=== PATIENT | male | born 1975 | race Caucasian/White ===

== ENCOUNTER 2017-04-18 09:56 | Inpatient (IN) | payer BC, OTHER ==
[~2017-04-18] VITALS: Ht 180.3 cm; Wt 120.2 kg
[2017-04-18] MEDS ORDERED: MORPHINE SULFATE 4 MG/ML SYRG ONE (09:59)
[2017-04-18] MEDS ORDERED: HEPARIN 1,000 UNITS/ml 1ML VIAL ONE (10:00)
[2017-04-18] MEDS ORDERED: HEPARIN SODIUM (PORCINE) 5000 UNITS/ML 1ML VIAL ONE (10:01)
[2017-04-18] MEDS ORDERED: LIDOCAINE 2%HCL (LOCAL ANESTH.) INJ 20ML MDV ONE (10:07)
[2017-04-18] MEDS ORDERED: IODIXANOL 320MG/ML 100ML BTL IV ONE (10:07)
[2017-04-18] MEDS ORDERED: SODIUM CHL 0.9% 50 ML ONE ×2 (10:13→10:56)
[2017-04-18] MEDS ORDERED: ANGIOMAX 250 MG VIAL IV ONE ×2 (10:13→10:56)
[2017-04-18] MEDS ORDERED: MIDAZOLAM HCL 1MG/1ML-2 ML VIAL ONE (10:13)
[2017-04-18] MEDS ORDERED: EPTIFIBATIDE INJ (2MG/ML) 10ML VIAL IV ONE (10:14)
[2017-04-18] MEDS ORDERED: fentaNYL CITRATE 100 MCG/2 ML VL ONE (10:14)
[2017-04-18] MEDS ORDERED: MORPHINE SULFATE 4 MG/ML SYRG IV ONE (10:15)
[2017-04-18] MEDS ORDERED: HEPARIN 1,000 UNITS/ml 1ML VIAL IV ONE (10:15)
[2017-04-18 10:21] LABS: Basophils # (auto) 0 uL; Basophils % (auto) 0.4 % (0.0-2.0); Eosinophils # (auto) 0.3 uL; Eosinophils % (auto) 3.3 % (0.0-7.0); Hematocrit 39.2 % (41.0-53.0); Hemoglobin 13.6 g/dL (13.5-17.5); Lymphocytes # (auto) 3.3 uL; Lymphocytes % (auto) 40.3 % (10.0-50.0); Mean Corpuscular Hemoglobin 29.3 pg (28.0-32.0); Mean Corpuscular Hgb Conc. 34.7 g/dL (32.0-36.0); Mean Corpuscular Volume 84.4 fL (80.0-100.0); Mean Platelet Volume 9.6 fL (7.4-10.4); Monocytes # (auto) 0.7 uL; Monocytes % (auto) 8.6 % (0.0-12.0); Neutrophils # (auto) 3.9 uL; Neutrophils % (auto) 47.4 % (37.0-80.0); Platelet Count (auto) 235 10^3/uL (140-450); Red Cell Distribution Width 13.2 % (11.6-16.0); White Blood Cell 8.2 10^3/uL (4.4-10.8)
[2017-04-18 10:35] LABS: INR 0.97 (0.9-1.15); Partial Thromboplastin Time 24.7 sec (22.64-33.71); Prothrombin Time 10.6 sec (9.37-12.3)
[2017-04-18 10:44] LABS: Albumin 3.8 g/dL (3.4-5.0); Alkaline Phosphatase 107 U/L (45-117); Anion Gap 9 (5-15); Aspartate Aminotransferase 23 U/L (15-37); BUN/Creatinine Ratio 9.6; Bilirubin, Total 0.5 mg/dL (0.2-1.0); Blood Urea Nitrogen 9 mg/dL (7-18); Calcium 8.7 mg/dL (8.5-10.1); Carbon Dioxide 25 mmol/L (21-32); Chloride 109 mmol/L (98-107); GFR African American 113 mL/min; GFR Non-African American 94 mL/min; Glucose 98 mg/dL (74-106); Magnesium 2.3 mg/dL (1.6-2.6); Sodium 143 mmol/L (136-145); Total Protein 7.1 g/dL (6.4-8.2)
[2017-04-18] MEDS ORDERED: ATROPINE SULF 0.5 MG/5ML SYR ONE (10:53)
[2017-04-18] MEDS ORDERED: EPINEPHrine HCL 1 MG/10 ML SYRG ONE (10:54)
[2017-04-18] MEDS ORDERED: ASPirin 325 MG TAB ONE (11:08)
[2017-04-18] MEDS ORDERED: CLOPIDOGREL 300 MG TAB ONE (11:08)
[2017-04-18] MEDS ORDERED: ONDANSETRON HCL 4 MG/2 ML VIAL IV PRN (11:45)
[2017-04-18] MEDS ORDERED: MORPHINE SULF INJ 2 MG/ML SYRINGE 1ML IV PRN ×2 (11:45)
[2017-04-18] MEDS ORDERED: NITROGLYCERIN 0.4 MG SL TAB SL PRN ×2 (11:45)
[2017-04-18] MEDS ORDERED: ACETAMINOPHEN 500 MG TAB PO PRN (11:45)
[2017-04-18 12:00] LABS: Cholesterol 212 mg/dL (< 200); HDL Cholesterol 39 mg/dL (40-59); LDL Cholesterol 149 mg/dL (< 100); Triglycerides 207 mg/dL (< 150)
[2017-04-18] MEDS ORDERED: POTASSIUM CHL 10% (20 MEQ/15ML) ORAL SOLN PO ONE ×2 (13:30→17:30)
[2017-04-18 14:00] VITALS: BP 110/65
[2017-04-18] MEDS ORDERED: POTASSIUM CHL 20 Meq TABLET PO ONE ×2 (15:00→18:00)
[2017-04-18] MEDS ORDERED: AMLO5TAB2 PO (15:13)
[2017-04-18 16:00] VITALS: BP 145/75
[2017-04-18 20:00] VITALS: BP 142/84
[2017-04-18] MEDS: ATORVASTATIN 20 MG TAB PO SCH (20:58)
[2017-04-18] MEDS ORDERED: FAMOTIDINE (10MG/ML) 2ML VL IV SCH (22:00)
[2017-04-19] VITALS (7 sets, daily range): BP systolic 111–137; BP diastolic 71–80
[2017-04-19 04:57] LABS: Basophils # (auto) 0 uL; Basophils % (auto) 0.4 % (0.0-2.0); Eosinophils # (auto) 0.2 uL; Eosinophils % (auto) 1.5 % (0.0-7.0); Hematocrit 38.8 % (41.0-53.0); Hemoglobin 13.4 g/dL (13.5-17.5); Lymphocytes % (auto) 19.4 % (10.0-50.0); Mean Corpuscular Hemoglobin 29.3 pg (28.0-32.0); Mean Corpuscular Hgb Conc. 34.4 g/dL (32.0-36.0); Mean Corpuscular Volume 85.2 fL (80.0-100.0); Mean Platelet Volume 9.4 fL (7.4-10.4); Monocytes # (auto) 0.7 uL; Monocytes % (auto) 6.9 % (0.0-12.0); Neutrophils # (auto) 7.4 uL; Neutrophils % (auto) 71.8 % (37.0-80.0); Platelet Count (auto) 210 10^3/uL (140-450); Red Cell Distribution Width 13.2 % (11.6-16.0); White Blood Cell 10.4 10^3/uL (4.4-10.8)
[2017-04-19 05:33] LABS: BUN/Creatinine Ratio 13.1; Calcium 8.8 mg/dL (8.5-10.1)
[2017-04-19] MEDS: METOPROLOL SUCCINATE XL 50 MG TAB PO SCH (09:41)
[2017-04-19] MEDS: CLOPIDOGREL BISULFATE 75 MG TAB PO SCH (09:41)
[2017-04-19] MEDS: ASPirin 81 mg TAB PO SCH (09:41)
[2017-04-19] MEDS: PANTOPRAZOLE SODIUM 40 MG/10 ML VIAL IV SCH (09:41)
[2017-04-19] MEDS: ENALAPRIL MALEATE 2.5 MG TAB PO SCH (09:42)
[2017-04-19] MEDS: ATORVASTATIN 20 MG TAB PO SCH (21:30)
[2017-04-20 04:00] VITALS: BP 126/74
[2017-04-20 07:52] VITALS: BP 122/69
[2017-04-20] MEDS: PANTOPRAZOLE SODIUM 40 MG/10 ML VIAL IV SCH (10:44)
[2017-04-20] MEDS: CLOPIDOGREL BISULFATE 75 MG TAB PO SCH (10:44)
[2017-04-20] MEDS: METOPROLOL SUCCINATE XL 50 MG TAB PO SCH (10:45)
[2017-04-20] MEDS: ASPirin 81 mg TAB PO SCH (10:45)
[2017-04-20] MEDS: ENALAPRIL MALEATE 2.5 MG TAB PO SCH (10:45)
[2017-04-20 11:31] VITALS: BP 138/85
[2017-04-20 11:57] VITALS: BP 124/79
[2017-04-20 12:47] VITALS: BP 138/85
== END 2017-04-20 12:35 | disposition home or self-care (01) | DRG 247 ==
LOC: ER 09:56 → EDBD 09:56 → CATH 09:57 → DOU IN ICU 09:58
PROVIDERS: ADMIT Internal Medicine Cardiovascular Disease; ATTEND Internal Medicine Cardiovascular Disease
PROC: 027035Z Dilation of Coronary Artery, One Artery with Two Drug-eluting Intraluminal Devices, Percutaneous Approach (ICD-10-PCS; principal; 2017-04-18)
PROC: 4A023N7 Measurement of Cardiac Sampling and Pressure, Left Heart, Percutaneous Approach (ICD-10-PCS; 2017-04-18)
PROC: B2111ZZ Fluoroscopy of Multiple Coronary Arteries using Low Osmolar Contrast (ICD-10-PCS; 2017-04-18)
PROC: B41F1ZZ Fluoroscopy of Right Lower Extremity Arteries using Low Osmolar Contrast (ICD-10-PCS; 2017-04-18)
DX: I21.3 ST elevation (STEMI) myocardial infarction of unspecified site (principal); I42.9 Cardiomyopathy, unspecified; E66.01 Morbid (severe) obesity due to excess calories; G47.30 Sleep apnea, unspecified; E78.5 Hyperlipidemia, unspecified; I10 Essential (primary) hypertension; I48.91 Unspecified atrial fibrillation; I25.10 Atherosclerotic heart disease of native coronary artery without angina pectoris; I25.2 Old myocardial infarction; Z79.02 Long term (current) use of antithrombotics/antiplatelets; Z68.37 Body mass index [BMI] 37.0-37.9, adult; Z79.82 Long term (current) use of aspirin; Z79.899 Other long term (current) drug therapy; Z82.49 Family history of ischemic heart disease and other diseases of the circulatory system
CPT/HCPCS: 36415; 71010; 80048; 80053; 80061; 82962; 83036; 83735; 84443; 84484; 85025; 85610; 85730; 86850; 86900; 86901; 87081; 92928; 93005; 93306; 93458; 96361; 96365; 96375; C9113; J0461; J2250; Q9967